=== PATIENT | male | born 2000 | race Two or more races ===

== ENCOUNTER 2023-03-23 12:44 | Emergency (ER) | payer OTHER ==
[2023-03-23 13:06] VITALS: BP 98/71; PULSE 74; RESP 18; TEMP 98.5; BMI 21.8
[2023-03-23] MEDS ORDERED: KETOROLAC TROMETHAMINE 30 MG/1 ML VIAL IM ONE (13:27)
[2023-03-23] MEDS ORDERED: ACETAMINOPHEN 500 MG TABLET (FP) PO ONE (13:28)
[2023-03-23] MEDS ORDERED: METHOCARBAMOL 750 MG TABLET PO ONE (13:29)
[2023-03-23] MEDS ORDERED: METHOCARBAMOL 500 MG TABLET ONE (13:38)
[2023-03-23] MEDS ORDERED: ACETAMINOPHEN 500 MG TABLET (FP) ONE (13:38)
[2023-03-23] MEDS ORDERED: KETOROLAC TROMETHAMINE 30 MG/1 ML VIAL ONE (13:38)
== END 2023-03-23 15:05 | disposition home or self-care (01) ==
LOC: JERFT 12:44 → JER 12:44 → JERFT 15:05
PROC: 3E0233Z Introduction of Anti-inflammatory into Muscle, Percutaneous Approach (ICD-10-PCS; principal; 2023-03-23)
DX: M79.10 Myalgia, unspecified site (principal); M54.32 Sciatica, left side
CPT/HCPCS: 99284-25